=== PATIENT | female | born 1985 | race Caucasian/White ===

== ENCOUNTER 2017-08-09 16:15 | Observation (INO) | payer OTHER ==
[2017-08-09 18:01] VITALS: BP 120/72
== END 2017-08-09 17:45 | disposition home or self-care (01) ==
LOC: 4S 16:15
PROVIDERS: ADMIT Obstetrics & Gynecology; ATTEND Obstetrics & Gynecology
DX: O26.893 Other specified pregnancy related conditions, third trimester (principal); R10.9 Unspecified abdominal pain; Z3A.32 32 weeks gestation of pregnancy
CPT/HCPCS: 59025; G0378

== ENCOUNTER 2017-08-12 16:59 | Observation (INO) | payer OTHER ==
[~2017-08-12] VITALS: Ht 160 cm; Wt 103.9 kg
[2017-08-12 18:26] VITALS: BP 109/63
== END 2017-08-12 18:00 | disposition home or self-care (01) ==
LOC: 4S 16:59
PROVIDERS: ADMIT Obstetrics & Gynecology; ATTEND Obstetrics & Gynecology
DX: O76 Abnormality in fetal heart rate and rhythm complicating labor and delivery (principal); Z3A.32 32 weeks gestation of pregnancy
CPT/HCPCS: 59025; G0378

== ENCOUNTER 2017-08-16 16:27 | Observation (INO) | payer OTHER ==
[~2017-08-16] VITALS: Ht 160 cm; Wt 104.3 kg
[2017-08-16] MEDS ORDERED: PREN-134 PO (16:51)
[2017-08-16 16:53] VITALS: BP 109/67
[2017-08-16] MEDS ORDERED: BETAMETHASONE SOLUSPAN 6 MG/ML 5 ML VIAL IM SCH (17:15)
[2017-08-16] MEDS ORDERED: RINGERS SOLUTION,LACTATED 1,000 ML IV SCH ×2 (17:15→20:15)
[2017-08-16 18:57] LABS: APPEARANCE,URINE CLEAR (CLEAR); BILIRUBIN,URINE NEGATIVE (NEGATIVE); GLUCOSE, URINE (UA) NEGATIVE (NEGATIVE); KETONES,URINE >=80 mg/dL (NEGATIVE); LEUKOCYTE ESTERASE ,URINE NEGATIVE (NEGATIVE); NITRATE,URINE NEGATIVE (NEGATIVE); OCCULT BLOOD,URINE NEGATIVE (NEGATIVE); PH,URINE 6.5 (5.0-8.0); PROTEIN,URINE NEGATIVE (NEGATIVE); UROBILINOGEN,URINE 0.2 mg/dL (<=1.0)
== END 2017-08-16 22:05 | disposition home or self-care (01) ==
LOC: 4S 16:27
PROVIDERS: ADMIT Obstetrics & Gynecology; ATTEND Obstetrics & Gynecology
DX: O36.8330 Maternal care for abnormalities of the fetal heart rate or rhythm, third trimester, not applicable or unspecified (principal); O26.893 Other specified pregnancy related conditions, third trimester; M54.5 Low back pain; R10.30 Lower abdominal pain, unspecified; Z3A.33 33 weeks gestation of pregnancy
CPT/HCPCS: 59025; 81003; 82731; 87086; 96360; 96372; G0378; J0702; J7120; 96361

== ENCOUNTER 2017-08-17 09:04 | Observation (INO) | payer OTHER ==
[~2017-08-17] VITALS: Ht 160 cm; Wt 101.2 kg
[~2017-08-17 09:04] MED LIST: PREN-134 PO
[2017-08-17] MEDS ORDERED: BETAMETHASONE SOLUSPAN 6 MG/ML 5 ML VIAL IM ONE (09:45)
[2017-08-17 10:11] VITALS: BP 115/71
== END 2017-08-17 10:05 | disposition home or self-care (01) ==
LOC: 4S 09:04
PROVIDERS: ADMIT Obstetrics & Gynecology; ATTEND Obstetrics & Gynecology
DX: O36.0130 Maternal care for anti-D [Rh] antibodies, third trimester, not applicable or unspecified (principal); Z3A.33 33 weeks gestation of pregnancy
CPT/HCPCS: 59025; 96372; G0378; J0702

== ENCOUNTER 2017-08-19 16:45 | Observation (INO) | payer OTHER ==
[~2017-08-19] VITALS: Ht 160 cm; Wt 107.0 kg
== END 2017-08-19 18:20 | disposition home or self-care (01) ==
LOC: 4S 16:45
PROVIDERS: ADMIT Obstetrics & Gynecology; ATTEND Obstetrics & Gynecology
DX: O76 Abnormality in fetal heart rate and rhythm complicating labor and delivery (principal); Z3A.33 33 weeks gestation of pregnancy
CPT/HCPCS: 59025; G0378

== ENCOUNTER 2017-08-23 17:30 | Observation (INO) | payer OTHER ==
[2017-08-23 17:54] VITALS: BP 117/61
== END 2017-08-23 18:45 | disposition home or self-care (01) ==
LOC: 4S 17:30
PROVIDERS: ADMIT Obstetrics & Gynecology; ATTEND Obstetrics & Gynecology
DX: O76 Abnormality in fetal heart rate and rhythm complicating labor and delivery (principal); Z3A.34 34 weeks gestation of pregnancy
CPT/HCPCS: 59025

== ENCOUNTER 2017-08-26 17:33 | Observation (INO) | payer OTHER ==
[~2017-08-26] VITALS: Ht 160 cm; Wt 107.2 kg
[2017-08-26 17:58] VITALS: BP 115/76
== END 2017-08-26 18:15 | disposition home or self-care (01) ==
LOC: 4S 17:33
PROVIDERS: ADMIT Obstetrics & Gynecology; ATTEND Obstetrics & Gynecology
DX: O76 Abnormality in fetal heart rate and rhythm complicating labor and delivery (principal); Z3A.34 34 weeks gestation of pregnancy
CPT/HCPCS: 59025; G0378

== ENCOUNTER 2017-08-30 17:19 | Observation (INO) | payer OTHER ==
[~2017-08-30] VITALS: Ht 160 cm; Wt 107.5 kg
[2017-08-30 17:34] VITALS: BP 111/67
== END 2017-08-30 18:45 | disposition home or self-care (01) ==
LOC: 4S 17:19
PROVIDERS: ADMIT Obstetrics & Gynecology; ATTEND Obstetrics & Gynecology
DX: O76 Abnormality in fetal heart rate and rhythm complicating labor and delivery (principal); Z3A.35 35 weeks gestation of pregnancy
CPT/HCPCS: 59025; G0378

== ENCOUNTER 2017-09-02 17:15 | Observation (INO) | payer OTHER ==
[~2017-09-02] VITALS: Ht 160 cm; Wt 108.0 kg
[2017-09-02 17:36] VITALS: BP 108/55
== END 2017-09-02 18:15 | disposition home or self-care (01) ==
LOC: 4S 17:15
PROVIDERS: ADMIT Obstetrics & Gynecology; ATTEND Obstetrics & Gynecology
DX: O76 Abnormality in fetal heart rate and rhythm complicating labor and delivery (principal); Z3A.35 35 weeks gestation of pregnancy
CPT/HCPCS: 59025; G0378

== ENCOUNTER 2017-09-06 17:15 | Observation (INO) | payer OTHER ==
[~2017-09-06] VITALS: Ht 157.5 cm; Wt 109.3 kg
[2017-09-06 17:41] VITALS: BP 99/57
== END 2017-09-06 18:20 | disposition home or self-care (01) ==
LOC: 4S 17:15
PROVIDERS: ADMIT Obstetrics & Gynecology; ATTEND Obstetrics & Gynecology
DX: O76 Abnormality in fetal heart rate and rhythm complicating labor and delivery (principal); Z3A.36 36 weeks gestation of pregnancy
CPT/HCPCS: 59025; G0378

== ENCOUNTER 2017-09-09 07:55 | Observation (INO) | payer OTHER ==
[~2017-09-09] VITALS: Ht 160 cm; Wt 108.4 kg
[2017-09-09 08:09] VITALS: BP 112/59
== END 2017-09-09 09:55 | disposition home or self-care (01) ==
LOC: 4S 07:55
PROVIDERS: ADMIT Obstetrics & Gynecology; ATTEND Obstetrics & Gynecology
DX: O76 Abnormality in fetal heart rate and rhythm complicating labor and delivery (principal); Z3A.36 36 weeks gestation of pregnancy
CPT/HCPCS: 59025; G0378

== ENCOUNTER 2017-09-13 07:56 | Observation (INO) | payer OTHER ==
[~2017-09-13] VITALS: Ht 160 cm; Wt 110.2 kg
[2017-09-13 08:14] VITALS: BP 104/62
== END 2017-09-13 08:50 | disposition home or self-care (01) ==
LOC: 4S 07:56
PROVIDERS: ADMIT Obstetrics & Gynecology; ATTEND Obstetrics & Gynecology
DX: O76 Abnormality in fetal heart rate and rhythm complicating labor and delivery (principal); Z3A.37 37 weeks gestation of pregnancy
CPT/HCPCS: 59025

== ENCOUNTER 2017-09-16 07:40 | Observation (INO) | payer MEDICAID, OTHER ==
[~2017-09-16] VITALS: Ht 160 cm; Wt 110.7 kg
[2017-09-16 08:28] VITALS: BP 104/66
== END 2017-09-16 09:00 | disposition home or self-care (01) ==
LOC: 4S 07:40
PROVIDERS: ADMIT Obstetrics & Gynecology; ATTEND Obstetrics & Gynecology
DX: O76 Abnormality in fetal heart rate and rhythm complicating labor and delivery (principal); Z3A.37 37 weeks gestation of pregnancy
CPT/HCPCS: 59025; G0378

== ENCOUNTER 2017-09-20 02:25 | Observation (INO) | payer MEDICAID ==
[~2017-09-20] VITALS: Ht 160 cm; Wt 109.5 kg
[2017-09-20 04:17] VITALS: BP 126/72
== END 2017-09-20 06:15 | disposition home or self-care (01) ==
LOC: 4S 02:25 → EDSTATUS 10-02 03:22 → PREINTOOBSV 10-02 03:25
PROVIDERS: ADMIT Obstetrics & Gynecology; ATTEND Obstetrics & Gynecology
DX: O62.9 Abnormality of forces of labor, unspecified (principal); Z3A.38 38 weeks gestation of pregnancy
CPT/HCPCS: 59025; G0378

== ENCOUNTER 2017-09-23 03:59 | Inpatient (IN) | payer MEDICAID ==
[2017-09-23 04:43] VITALS: BP 128/70
[2017-09-23] MEDS: RINGERS SOLUTION,LACTATED 1,000 ML IV SCH ×4 (05:48→14:54)
[2017-09-23 06:19] LABS: BASOPHILS % (AUTO) 0.2 % (0.0-2.0); EOSINOPHILS % (AUTO) 0.6 % (1.0-6.0); HEMATOCRIT 35.4 % (36-46); HEMOGLOBIN 11.9 g/dL (12.0-16.0); LYMPHOCYTES # (AUTO) 1.3 K/uL (1.0-4.8); LYMPHOCYTES % (AUTO) 14.4 % (22.0-44.0); MEAN CORPUSCULAR HEMOGLOBIN 28.9 pg (26.0-34.0); MEAN CORPUSCULAR HGB CONC 33.7 G/dL (31.0-37.0); MEAN CORPUSCULAR VOLUME 86 fL (80-100); MONOCYTES # (AUTO) 0.8 K/uL (0.1-1.0); MONOCYTES % (AUTO) 8.7 % (2.0-9.0); NEUTROPHILS # (AUTO) 7.1 K/uL (1.8-7.7); NEUTROPHILS % (AUTO) 76.1 % (40.0-70.0); PLATELET COUNT (AUTO)-OB 223 K/uL (150-450); RED BLOOD CELL COUNT(AUTO) 4.13 MIL/uL (4.00-5.20); RED CELL DISTRIBUTION WIDTH 16.7 % (11.5-14.5)
[2017-09-23] MEDS ORDERED: OXYTOCIN 30 UNITS/LACT RINGERS 500 ML IV PRN (09:09)
[2017-09-23] MEDS ORDERED: RINGERS SOLUTION,LACTATED 1,000 ML IV SCH (09:09)
[2017-09-23] MEDS ORDERED: RINGERS SOLUTION,LACTATED 1,000 ML IV PRN (09:09)
[2017-09-23] MEDS ORDERED: CITRIC ACID/SODIUM CITRATE 30 ML SOLUTION UDCUP PO PRN (09:15)
[2017-09-23] MEDS ORDERED: METHYLERGONOVINE MALEATE 0.2 MG/ML VIAL IM PRN (09:15)
[2017-09-23] MEDS ORDERED: FentaNYL CITRATE-PF 100 MCG/2 ML VIAL IVP PRN (09:15)
[2017-09-23] MEDS ORDERED: METOCLOPRAMIDE HCL 5 MG/ML 2 ML VIAL IVP PRN (09:15)
[2017-09-23] MEDS ORDERED: ROPIVACAINE HCL/PF 0.2% 100 ML ED ONE (11:58)
[2017-09-23] MEDS ORDERED: ONDANSETRON HCL 4 MG/2 ML VIAL IVP PRN (12:45)
[2017-09-23] MEDS ORDERED: ROPIVACAINE HCL/PF 0.2% 100 ML ED PRN (12:45)
[2017-09-23] MEDS ORDERED: DiphenhydrAMINE HCL 50 MG/ML VIAL IVP PRN (12:45)
[2017-09-23] MEDS ORDERED: BENZOCAINE 20%/MENTHOL 56 GM SPRAY CANISTER TP PRN (15:45)
[2017-09-23] MEDS ORDERED: GLYCERIN/WITCH HAZEL LEAF 40 PADS JAR TP PRN (15:45)
[2017-09-23] MEDS ORDERED: LANOLIN 7 GM OINTMENT TP PRN (15:45)
[2017-09-23] MEDS ORDERED: ACETAMINOPHEN/CODEINE 300-30 MG TABLET PO PRN ×2 (15:45)
[2017-09-23] MEDS: IBUPROFEN 800 MG TABLET PO SCH ×2 (16:36→22:34)
[2017-09-23] MEDS ORDERED: OXYGEN THERAPY IH SCH (20:00)
[2017-09-23] MEDS: MAGNESIUM HYDROXIDE SUSPENSION 30 ML UDCUP PO SCH (21:01)
[2017-09-24] MEDS: IBUPROFEN 800 MG TABLET PO SCH ×2 (04:00→09:26)
[2017-09-24] MEDS: MAGNESIUM HYDROXIDE SUSPENSION 30 ML UDCUP PO SCH (09:26)
[2017-09-24] MEDS ORDERED: IBUP-2071 PO (15:00)
== END 2017-09-24 16:10 | disposition home or self-care (01) | DRG 560 ==
LOC: OBSVTOIN 03:59 → 4S 03:59
PROVIDERS: ADMIT Obstetrics & Gynecology; ATTEND Obstetrics & Gynecology
PROC: 10D07Z6 Extraction of Products of Conception, Vacuum, Via Natural or Artificial Opening (ICD-10-PCS; principal; 2017-09-23)
PROC: 0W8NXZZ Division of Female Perineum, External Approach (ICD-10-PCS; 2017-09-23)
PROC: 3E033VJ Introduction of Other Hormone into Peripheral Vein, Percutaneous Approach (ICD-10-PCS; 2017-09-23)
PROC: 10907ZC Drainage of Amniotic Fluid, Therapeutic from Products of Conception, Via Natural or Artificial Opening (ICD-10-PCS; 2017-09-23)
PROC: 3E0R3BZ Introduction of Anesthetic Agent into Spinal Canal, Percutaneous Approach (ICD-10-PCS; 2017-09-23)
PROC: 00HU33Z Insertion of Infusion Device into Spinal Canal, Percutaneous Approach (ICD-10-PCS; 2017-09-23)
DX: O69.81X0 Labor and delivery complicated by cord around neck, without compression, not applicable or unspecified (principal); Z37.0 Single live birth; Z3A.38 38 weeks gestation of pregnancy
CPT/HCPCS: 76811; 86850; 86900; 86901; 89060; J2590; J2795; J7120